=== PATIENT | male | born 1985 | race Caucasian/White ===

== ENCOUNTER 2024-04-19 17:58 | Emergency (ER) | payer MEDICAID, SELFPAY ==
--- NOTE | ~2024-04-19 | XR_ITS ---
XR knee LT min 4V DATE: 04/19/2024 18:21 INDICATION: Anterior pain and swelling TECHNIQUE: 4 views COMPARISON: None FINDINGS: No fracture or dislocation or joint effusion is detected. No periosteal reaction or bone d estruction. IMPRESSION: No significant abnormality Reviewed, dictated and finalized at location A. R FILLER IMPRESSION: No significant abnormality
[2024-04-19 18:06] VITALS: BP 135/77; PULSE 68; RESP 16; TEMP 36.8; O2SAT 98
--- NOTE | 2024-04-19 18:11 | ED.LOWEXIN ---
HPI - Extremity Injury (Lower) General Chief Complaint: Extremity Injury, Lower Stated Complaint: Left Knee Pain History of Present Illness HPI Narrative: Patient presents with left knee pain. 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 Patient has not taking anything for pain or discomfort today Related Data Allergies Allergy/AdvReac Type Severity Reaction Status Date / Time No Known Allergies Allergy Verified 04/19/24 18:11 Review of Systems Review of Systems: CONSTITUTIONAL: Denies fever, chills, or sweats. EYES: Denies visual changes, redness, or discharge. ENT: Denies rhinorrhea, congestion, sore throat, or otalgia. CARDIOVASCULAR: Denies chest pain, palpitations, or edema. RESPIRATORY: Denies cough or dyspnea. GASTROINTESTINAL: Denies abdominal pain, nausea, vomiting, or diarrhea. GENITOURINARY: Denies dysuria or hematuria. SKIN: Denies rash or itching. MUSCULOSKELETAL: Denies back pain, joint pain, or myalgia. NEUROLOGIC: Denies headache, numbness, or weakness. PSYCHIATRIC: Denies anxiety or depression. PMFSH Comments At time of signature, agree with nursing past medical, surgical, social and family history. There is no relevant family history pertinent to the presenting complaint Exam Narrative: GENERAL: Well-appearing, well-nourished, and in no acute distress. HEAD: Normocephalic, atraumatic. EYES: PERRLA and EOMI. ENT: Nares clear, no rhinorrhea or epistaxis. Mucous membranes moist. NECK: Supple. CHEST: Clear to auscultation. No respiratory distress. HEART: Regular rate and rhythm. No murmur heard. Normal peripheral pulses. ABDOMEN: Soft, nontender, nondistended, normal active bowel sounds. EXTREMITIES: Normal range of motion. No edema. SKIN INTACT. NO DEFORMITY. NORMAL ROM, HAS FULL EXTENSION AND FLEXION. COMPARTMENTS SOFT. NEGATIVE ANTERIOR, POSTERIOR DRAWER SIGNS ON TEST. NO CREPITUS. DP PULSE, NORMAL CAPILLARY REFILL MCMURRAYS, PAIN TO RIGHT MEDIAL AND DISTAL KNEE WITH KNEE FLEXION, INTERNAL AND EXTERNAL FOOT ROTATION.NO ERYTHEMA OR INCREASED WARMTH TO CALF. . SKIN: Warm, dry, no rash. NEURO: No focal deficits. Alert and oriented x3. Ramila Coma Scale Eye Opening: Spontaneous 4 Ramila Coma Scale Motor: Obeys Commands 6 [place] Coma Scale Verbal: Oriented 5 Ramila Coma Scale Total 15 Course Course Level of Care: Express Care Visit MDM - Extremity Injury (Lower) Imaging Data Radiologist's impression: No fracture or dislocation or joint effusion is detected. No periosteal reaction or bone destruction. IMPRESSION: No significant abnormality Discharge Plan Discharge Clinical Impression: Knee contusion, Knee pain, left Patient Disposition: Home, Self-Care Condition: Stable Instructions: Antibiotic Form, Knee Sprain (DC), Abrasion (ED) Additional Instructions: Ice to the area 20-30 minutes 4-6 times a day Elevate above heart Elastic wrap or orthopedic splint as directed for comfort for the next 5-7 days Tylenol for lesser pain Ibuprofen regularly for the next 2-3 days for the inflammation Follow-up with PCP if further problems or concerns -If you have any worsening of symptoms or any other concerns please go to the ED immediately. Prescriptions: New doxycycline hyclate 100 mg tablet 100 mg PO DAILY 7 Days Qty: 7 0RF naproxen [EC-Naprosyn] 500 mg tablet,delayed release (DR/EC) 500 mg PO BID Qty: 14 0RF Follow-up/Referrals: PHYSICIAN,AVIONICS SYSTEMS TECHNICIAN [Primary Care Provider] -
[2024-04-19] MEDS: KETOROLAC (*BKC) 60 MG/2 ML VIAL IM (18:21)
== END 2024-04-19 18:38 | disposition home or self-care (01) ==
PROVIDERS: Emergency Provider Nurse Practitioner Family
DX: S80.02XA Contusion of left knee, initial encounter (principal); X58.XXXA Exposure to other specified factors, initial encounter
CPT/HCPCS: 73562; 73564; 96372; 99203; G0463; J1885